=== PATIENT | male | born 1990 | race African-American/Black ===

== ENCOUNTER 2017-02-01 08:22 | Emergency (ER) | payer OTHER ==
[2017-02-01] MEDS ORDERED: Acetaminophen 325 MG TAB ONE (10:12)
== END 2017-02-01 10:15 | disposition home or self-care (01) ==
LOC: SCSER 08:22
DX: L05.91 Pilonidal cyst without abscess (principal); L03.119 Cellulitis of unspecified part of limb
CPT/HCPCS: 10060; 96372